=== PATIENT | female | born 1990 | race American Indian/Alaskan Native ===

== ENCOUNTER 2018-08-10 23:37 | Emergency (ER) | payer SELFPAY ==
--- NOTE | 2018-08-11 00:11 | Emergency Department Report ---
ED Abdominal Pain HPI - General Chief Complaint: Abdominal Pain Stated Complaint: ABD PAIN/ Time Seen by Provider: 08/10/18 23:45 Source: patient, EMS Mode of arrival: Stretcher Limitations: No Limitations - History of Present Illness Initial Comments: Patient is a 28-year-old female that presents emergency room with complaints of pelvic and cervical pain. Patient states that pain is a 4 out of 10. Patient states the pain is nonradiating. Patient states the pain is better with rest and worse with movement. Patient denies vaginal discharge. Patient denies vaginal bleeding. Patient denies spotting. Patient states she is 8 weeks . Patient states she has not had care. Patient states she is taking a vitamin. Patient denies nausea vomiting. Patient denies fever/chills. Patient is a Is currently on a 1013 for acute psychosis over at [place] [facility]. Patient has a sitter at [facility] from [place]. MD Complaint: abdominal pain -: Sudden Location: suprapubic Radiation: none Migration to: no migration Severity: moderate Severity scale (0 -10): 4 Quality: aching Consistency: constant Improves With: rest Worsens With: movement Associated Symptoms: denies other symptoms. denies: nausea, vomiting, diarrhea, fever, chills, constipation, dysuria, hematemesis, hematochezia, melena, hematur ia, anorexia, syncope - Related Data LMP (females 10-50): (8 weeks) Allergies Allergy/AdvReac Type Severity Reaction Status Date / Time No Known Allergies Allergy Unverified 08/11/18 00:42 ED Review of Systems ROS: Stated complaint: ABD PAIN/ Other details as noted in HPI Constitutional: denies: chills, fever Eyes: denies: eye pain, eye discharge, vision change ENT: denies: ear pain, throat pain Respiratory: denies: cough, shortness of breath, wheezing Cardiovascular: denies: chest pain, palpitations Endocrine: no symptoms reported Gastrointestinal: abdominal pain. denies: nausea, diarrhea Genitourinary: denies: urgency, dysuria, discharge Musculoskeletal: denies: back pain, joint swelling, arthralgia Skin: denies: rash, lesions Neurological: denies: headache, weakness, paresthesias Psychiatric: denies: anxiety, depression Hematological/Lymphatic: denies: easy bleeding, easy bruising ED Past Medical Hx - Past Medical History Previous Medical History?: Yes Hx Psychiatric Treatment: Yes - Surgical History Past Surgical History?: No - Family History Family history: no significant - Social History Smoking Status: Never Smoker Substance Use Type: Prescribed ED Physical Exam - General Limitations: No Limitations General appearance: alert, in no apparent distress - Head Head exam: Present: atraumatic, normocephalic - Eye Eye exam: Present: normal appearance - ENT ENT exam: Present: mucous membranes moist - Neck Neck exam: Present: normal inspection - Respiratory Respiratory exam: Present: normal lung sounds bilaterally. Absent: respiratory distress - Cardiovascular Cardiovascular Exam: Present: regular rate, normal rhythm. Absent: systolic murmur, diastolic murmur, rubs, gallop - GI/Abdominal GI/Abdominal exam: Present: soft, normal bowel sounds - Extremities Exam Extremities exam: Present: normal inspection - Back Exam Back exam: Present: normal inspection - Neurological Exam Neurological exam: Present: alert, oriented X3 - Psychiatric Psychiatric exam: Present: normal affect, normal mood - Skin Skin exam: Present: warm, dry, intact, normal color. Absent: rash ED Course Vital Signs 08/10/18 08/10/18 08/10/18 23:52 23:53 23:58 Temperature 98.2 F Pulse Rate 86 Respiratory 18 Rate Blood Pressure 110/76 O2 Sat by Pulse 99 100 100 Oximetry 08/11/18 08/11/18 08/11/18 00:00 00:16 00:30 Temperature Pulse Rate Respiratory Rate Blood Pressure 116/64 110/72 O2 Sat by Pulse 100 100 99 Oximetry 08/11/18 08/11/18 08/11/18 00:48 01:00 01:16 Temperature Pulse Rate Respiratory Rate Blood Pressure 102/58 99/57 99/57 O2 Sat by Pulse 100 99 100 Oximetry 08/11/18 08/11/18 08/11/18 01:30 01:46 02:00 Temperature Pulse Rate Respiratory Rate Blood Pressure 102/58 102/58 109/58 O2 Sat by Pulse 99 100 100 Oximetry 08/11/18 02:15 Temperature Pulse Rate Respiratory Rate Blood Pressure 109/58 O2 Sat by Pulse 99 Oximetry - Reevaluation(s) Reevaluation #1: Discussed results with patient. Ultrasound pending 08/11/18 01:59 Ultrasound is still pending. Patient is resting in bed comfortably 08/11/18 02:51 Ultrasound report back. Ultrasound normal. Patient given all results. Patient given discharge instructions. Patient was understanding of discharge instructions. Patient instructed to follow up with TECHNICAL SUPPORT ANALYST as soon as possible. Patient will be discharged back to [place] to continue her psychiatric rehabilitation. 08/11/18 03:50 ED Medical Decision Making - Lab Data Result diagrams: 08/11/18 00:26 08/11/18 00:26 - Radiology Data Radiology results: report reviewed FINAL REPORT PROCEDURE: OB US gt; = 14 WKS SNGL FETUS TECHNIQUE: Real-time transabdominal sonography of the uterus, placenta, amniotic fluid, adnexa, and fetus was performed with image documentation. Measurements were obtained to determine age/size. M-mode Doppler was used to document heartbeat. CPT 09835 HISTORY: ABD PAIN COMPARISON: No prior studies are available for comparison. FINDINGS: ADDITIONAL GESTATION: None. GENERAL: IUP: Single living intrauterine . Position: Transverse with the head toward the maternal left. Placental position: Anterior, without previa. Amniotic fluid volume: Amniotic fluid index is 6.1 centimeters which is below the lower limits of normal. MATERNAL: Uterus: Within normal limits. Cervical length: 3.6 cm. Internal Os: Closed. FETUS: Heart rate and rhythm: 143 beats per minute anatomic survey: Normal. MEASUREMENTS: BPD: 4.3 centimeters correspond to 19 weeks HC: 16.6 centimeters correspond to 19 weeks and 2 days AC: 14.2 centimeters correspond to 19 weeks and 4 days FL: 3.2 centimeters correspond to 20 weeks Mean Gestational Age (composite criteria): 19 weeks and 3 days Ratio biometry: Normal. Estimated Weight: 308 grams. Interval growth: There is no previous examination for comparison. Estimated Due Date (earliest scan): 19 weeks and 3 days, 01/02/2019 IMPRESSION: Single intrauterine gestation at 19 weeks and 3 days. Estimated due date: 01/02/2019. Normal anatomy. There is no evidence of placenta previa or abruption. Amniotic fluid index is 6.1 centimeters which is below the lower limits of normal. - Medical Decision Making Patient is a 28-year-old female that presents from urgent lower abdominal pain and pelvic pain. Patient states she is . HCG on serum was positive. Other labs unremarkable except for mild anemia. She had ultrasound done. Patient ultrasound shows an IUP at 19 weeks. Normal ultrasound findings - Differential Diagnosis pelvic pain. UTI. Normal pain. Round ligament pain Critical care attestation.: If time is entered above; I have spent that time in minutes in the direct care of this critically ill patient, excluding procedure time. ED Disposition Clinical Impression: Pelvic pain Qualifiers: Weeks of gestation: unspecified Qualified Code(s): Z34.90 - Encounter for supervision of normal , unspecified, unspecified trimester Disposition: TO HOME OR SELFCARE Is pt being admited?: No Does the pt Need Aspirin: No Condition: Stable Instructions: Abdominal Pain (ED) Additional Instructions: Patient of our primary care in 2-3 days. Patient to follow up with TECHNICAL SUPPORT ANALYST in 2- 3 days. Patient to return to your condition worsens. Patient to return to [facility] to continue her psychiatric treatment. Patient increase water. Patient to rest. Patient to continue vitamins. Patient to take Tylenol when necessary for pain Referrals: ABIGAIL STRAUSS MD [Primary Care Provider] - 2-3 Days OLIVIA PATEL MD [Staff Physician] - 2-3 Days Time of Disposition: 03:55
[2018-08-11 00:59] LABS: Hematocrit 29.9 % (30.3-42.9); Mean Corpuscular HGB Conc 33 % (30-34); Mean Corpuscular Volume 83 fl (79-97); Platelet Count 314 K/mm3 (140-440); Red Cell Distribution Width 13.2 % (13.2-15.2)
[2018-08-11 01:19] LABS: Bilirubin,Urine NEG (Negative); Blood,Urine NEG (Negative); Color,Urine Yellow (Yellow); Mucus,Urine FEW /HPF; Protein,Urine <15 mg/dL mg/dL (Negative); Urobilinogen,Urine < 2.0 mg/dL (<2.0)
[2018-08-11 01:33] LABS: Alanine Aminotransferase 9 units/L (7-56); Albumin 3.4 g/dL (3.9-5); BUN/Creatinine Ratio 18; Blood Urea Nitrogen 11 mg/dL (7-17); Calcium 9.4 mg/dL (8.4-10.2); Hemolysis Index 2
--- NOTE | 2018-08-11 03:50 | Ultrasound Report ---
FINAL REPORT PROCEDURE: OB US > = 14 WKS SNGL FETUS TECHNIQUE: Real-time transabdominal sonography of the uterus, placenta, amniotic fluid, adnexa, and fetus was performed with image documentation. Measurements were obtained to determine age/size. M-mode Doppler was used to document heartbeat. CPT 17517 HISTORY: ABD PAIN COMPARISON: No prior studies are available for comparison. FINDINGS: ADDITIONAL GESTATION: None. GENERAL: IUP: Single living intrauterine . Position: Transverse with the head toward the maternal left. Placental position: Anterior, without previa. Amniotic fluid volume: Amniotic fluid index is 6.1 solange timeters which is below the lower limits of normal. MATERNAL: Uterus: Within normal limits. Cervical length: 3.6 cm. Internal Os: Closed. FETUS: Heart rate and rhythm: 143 beats per minute anatomic survey: Normal. MEASUREMENTS: BPD: 4.3 centimeters correspond to 19 weeks HC: 16.6 centimeters correspond to 19 weeks and 2 days AC: 14.2 centimeters correspond to 19 weeks and 4 days FL: 3.2 centimeters correspond to 20 weeks Mean Gestational Age (composite criteria): 19 weeks and 3 days Ratio biometry: Normal. Estimated Weight: 308 grams. Interval growth: There is no previous examination for comparison. Estimated Due Date (earliest scan): 19 weeks and 3 days, 01/02/2019 IMPRESSION: Single intrauterine gestation at 19 weeks and 3 days. Estimated due date: 01/02/2019. Normal anatomy. There is no evidence of placenta previa or abruption. Amniotic fluid index is 6.1 centimeters which is below the lower limits of normal.
[2018-08-11 04:15] VITALS: BP 109/58
== END 2018-08-11 07:33 | disposition home or self-care (01) ==
LOC: ED 23:37
DX: O26.891 Other specified pregnancy related conditions, first trimester (principal); R10.2 Pelvic and perineal pain; Z3A.08 8 weeks gestation of pregnancy
CPT/HCPCS: 36415; 76805; 80053; 81001; 84702; 85027; 99284